=== PATIENT | female | born 1985 | race Caucasian/White ===

== ENCOUNTER 2019-09-06 08:54 | Emergency (ER) | payer SELFPAY ==
[~2019-09-06] VITALS: Ht 165.1 cm; Wt 85.6 kg
[2019-09-06 08:58] VITALS: BP 133/93
[2019-09-06 09:42] LABS: MICROSCOPIC NOT IND
--- NOTE | 2019-09-06 10:04 | NUR ---
Patient/Caregiver given discharge instructions and they have confirmed that they understand the instructions. Patient ambulatory with steady gait.
== END 2019-09-06 10:31 | disposition home or self-care (01) ==
LOC: ED 10:28
DX: M54.5 Low back pain (principal); M54.16 Radiculopathy, lumbar region; R30.0 Dysuria; J45.909 Unspecified asthma, uncomplicated; F17.200 Nicotine dependence, unspecified, uncomplicated
CPT/HCPCS: 81003; 99283

== ENCOUNTER 2019-11-05 20:27 | Emergency (ER) | payer MEDICAID ==
[~2019-11-05] VITALS: Ht 165.1 cm; Wt 91.9 kg
[2019-11-05 20:34] VITALS: BP 129/72
[2019-11-05 21:49] LABS: BASOPHILS # (AUTO) 0.03 x10^3/uL (0-0.1); BASOPHILS % (AUTO) 1 % (0-1); EOSINOPHILS # (AUTO) 0.36 x10^3/uL (0-0.4); EOSINOPHILS % (AUTO) 6 % (1-7); LYMPHOCYTES # (AUTO) 1.41 x10^3/uL (1-3.4); LYMPHOCYTES % (AUTO) 25 % (22-44); MD NO; MEAN CORPUSCULAR HEMOGLOBIN 30.8 pg (27.0-34.8); MEAN CORPUSCULAR HGB CONC 31.4 g/dL (32.4-35.8); MEAN PLATELET VOLUME 6.9 fL (7.4-10.4); MONOCYTES % (AUTO) 11 % (2-9); NEUTROPHILS % (AUTO) 58 % (42-75); PLATELET COUNT 323 x10^3/uL (130-400); RED CELL DISTRIBUTION WIDTH 17.6 % (9.6-15.2)
[2019-11-05] MEDS ORDERED: HYDROcodone/APAP 5/325 TABLET ONE (21:50)
[2019-11-05 21:55] LABS: CLUE CELLS PRESENT (NONE SEEN); WET PREP WBCS FEW (FEW)
[2019-11-05 21:59] LABS: ANION GAP 5 mmol/L (5-15); CALCIUM 8.3 mg/dL (8.5-10.1); CHLORIDE 113 mmol/L (98-107); CREATININE 0.71 mg/dL (0.55-1.02)
[2019-11-05] MEDS ORDERED: HYDROcodone/APAP 5/325 TABLET PO ONE (22:00)
--- NOTE | 2019-11-05 22:42 | NUR ---
PT RETURNED FROM ULTRASOUND AT THIS TIME.
--- NOTE | 2019-11-06 00:21 | NUR ---
PT ON PELVIC BED, ERP AT BEDSIDE FOR IUD REMOVAL. PT DENIES ANY FURTHER NEEDS OR CONCERNS AT THIS TIME.
[2019-11-06] MEDS ORDERED: HYDROmorphone 1 MG/ML, 1ML INJ IM ONE (00:30)
[2019-11-06] MEDS ORDERED: HYDROmorphone 1 MG/ML, 1ML INJ ONE (00:31)
== END 2019-11-06 00:54 | disposition home or self-care (01) ==
LOC: ED 20:59
DX: N73.0 Acute parametritis and pelvic cellulitis (principal); A64 Unspecified sexually transmitted disease; N72 Inflammatory disease of cervix uteri; N93.9 Abnormal uterine and vaginal bleeding, unspecified; N76.0 Acute vaginitis; R10.2 Pelvic and perineal pain; R00.0 Tachycardia, unspecified; J45.909 Unspecified asthma, uncomplicated; F17.210 Nicotine dependence, cigarettes, uncomplicated
CPT/HCPCS: 36415; 76830; 80048; 84703; 85025; 87210; 87491; 87591; 87808; 96372; 99284; J1170

== ENCOUNTER 2019-12-08 11:58 | Emergency (ER) | payer MEDICAID ==
[~2019-12-08] VITALS: Ht 165.1 cm; Wt 91.4 kg
[2019-12-08 12:00] VITALS: BP 155/73
== END 2019-12-08 13:26 | disposition home or self-care (01) ==
LOC: ED 12:25
DX: S60.221A Contusion of right hand, initial encounter (principal); J45.909 Unspecified asthma, uncomplicated; F17.200 Nicotine dependence, unspecified, uncomplicated; Y04.8XXA Assault by other bodily force, initial encounter; Y93.89 Activity, other specified; Y92.410 Unspecified street and highway as the place of occurrence of the external cause; Y99.8 Other external cause status
CPT/HCPCS: 29125; 99283

== ENCOUNTER 2020-11-01 19:39 | Emergency (ER) | payer SELFPAY ==
[~2020-11-01] VITALS: Ht 165.1 cm; Wt 108.1 kg
[2020-11-01 19:48] VITALS: BP 129/81
--- NOTE | 2020-11-01 21:40 | NUR ---
NA X 1
--- NOTE | 2020-11-01 21:57 | NUR ---
NA X 2
--- NOTE | 2020-11-01 22:17 | NUR ---
NA X 3
== END 2020-11-01 22:19 | disposition left against medical advice (07) ==
LOC: ED 21:00
DX: S20.01XA Contusion of right breast, initial encounter (principal); X58.XXXA Exposure to other specified factors, initial encounter; Y93.89 Activity, other specified; Y92.89 Other specified places as the place of occurrence of the external cause; Y99.8 Other external cause status
CPT/HCPCS: 99281

== ENCOUNTER 2020-11-09 02:40 | Emergency (ER) | payer OTHER ==
[~2020-11-09] VITALS: Ht 165.1 cm; Wt 111.3 kg
--- NOTE | 2020-11-09 02:46 | NUR ---
EKG DONE IN TRIAGE.
--- NOTE | 2020-11-09 02:57 | NUR ---
PT PRESENTS TO ER FOR SOB, CHILLS, COUGH, AND SORE THROAT, PT STATES SHE CANT BREATH, PT SPEAKING IN FULL SENTENCES, PT STATES SHE HAS ASTHMA, PT STATES SHE HAS BEEN EXPERIENCING THIS SYMPTOMS SINCE YESTERDAY, PT STATES SHE FEELS LIKE SHE HAS PNEUMONIA, PT HAS A NON PRODUCTIVE COUGH
[2020-11-09 03:26] VITALS: BP 131/88
[2020-11-09] MEDS ORDERED: ALBUTEROL/IPRATROPIUM 2.5MG/0.5MG, 3 ML ONE (03:30)
[2020-11-09] MEDS ORDERED: ALBUTEROL/IPRATROPIUM 2.5MG/0.5MG, 3 ML NPPB ONE (03:30)
[2020-11-09] MEDS ORDERED: ACETAMINOPHEN 500 MG TABLET ONE (03:45)
[2020-11-09] MEDS ORDERED: ACETAMINOPHEN 500 MG TABLET PO ONE (04:00)
[2020-11-09] MEDS ORDERED: DEXAMETHASONE 4 MG TABLET ONE (04:17)
[2020-11-09] MEDS ORDERED: DEXAMETHASONE 4 MG TABLET PO ONE (04:30)
== END 2020-11-09 04:42 | disposition home or self-care (01) ==
LOC: ED 04:26
DX: J45.901 Unspecified asthma with (acute) exacerbation (principal); R06.00 Dyspnea, unspecified; Z20.822 Contact with and (suspected) exposure to COVID-19; R00.0 Tachycardia, unspecified
CPT/HCPCS: 71045; 93005; 94640; 99285; U0003; U0005

== ENCOUNTER 2020-11-29 10:13 | Emergency (ER) | payer OTHER ==
[~2020-11-29] VITALS: Ht 165.1 cm; Wt 108.1 kg
[2020-11-29 11:49] LABS: BASOPHILS % (AUTO) 0 % (0-1); EOSINOPHILS % (AUTO) 1 % (1-7); LYMPHOCYTES % (AUTO) 7 % (22-44); MEAN CORPUSCULAR HEMOGLOBIN 36.4 pg (27.0-34.8); MEAN CORPUSCULAR HGB CONC 33.7 g/dL (32.4-35.8); MEAN PLATELET VOLUME 7.7 fL (7.4-10.4); MONOCYTES % (AUTO) 8 % (2-9); NEUTROPHILS % (AUTO) 84 % (42-75); PLATELET COUNT 219 x10^3/uL (130-400); RED BLOOD COUNT 4.06 x10^6/uL (3.82-5.3); RED CELL DISTRIBUTION WIDTH 15.9 % (9.6-15.2)
[2020-11-29 11:54] LABS: ALBUMIN 3.3 g/dL (3.4-5.0); ANION GAP 10 mmol/L (5-15); CALCIUM 8.8 mg/dL (8.5-10.1); CHLORIDE 106 mmol/L (98-107)
[2020-11-29 11:57] LABS: ALANINE AMINOTRANSFERASE 71 U/L (12-78); ALKALINE PHOSPHATASE 73 U/L (45-117); BILIRUBIN,TOTAL 0.8 mg/dL (0.2-1.0); CREATININE 0.75 mg/dL (0.55-1.02); TOTAL PROTEIN 7.1 g/dL (6.4-8.2)
[2020-11-29 12:13] LABS: <PLATELET ESTIMATE> ADEQUATE; <PLT MORPHOLOGY> NORMAL PLT MORPH; ANISOCYTOSIS 1+
--- NOTE | 2020-11-29 13:53 | NUR ---
PATIENT AMBULATES WITH STEADY GAIT TO ROOM 23, PATIENT STATES SHE CAN GIVE URINE SAMPLE, PATIENT ESCORTED TO BATHROOM.
[2020-11-29] MEDS ORDERED: PANTOPRAZOLE 40 MG IV IVPush SCH (14:30)
[2020-11-29] MEDS ORDERED: SODIUM CHLORIDE FLUSH 10ML SYR IVF ONE (14:30)
[2020-11-29] MEDS ORDERED: SODIUM CHLORIDE 0.9% 1,000ML IVBOLUS ONE ×2 (14:30→16:30)
[2020-11-29] MEDS ORDERED: PANTOPRAZOLE 40 MG IV ONE (14:31)
[2020-11-29] MEDS ORDERED: MORPHINE SULFATE 4 MG/ML, 1ML ONE ×3 (14:31→16:33)
[2020-11-29] MEDS: MORPHINE SULFATE 4 MG/ML, 1ML IVPush PRN ×2 (14:56→16:07)
[2020-11-29 15:15] LABS: MICROSCOPIC INDICATED
--- NOTE | 2020-11-29 15:30 | NUR ---
PATIENT IN CT.
--- NOTE | 2020-11-29 15:39 | NUR ---
PATIENT BACK FROM RADIOLOGY.
[2020-11-29] MEDS ORDERED: ONDANSETRON 2MG/ML, 2ML IVPush ONE (16:30)
[2020-11-29] MEDS ORDERED: MORPHINE SULFATE 4 MG/ML, 1ML IVPush ONE (16:30)
[2020-11-29] MEDS ORDERED: ONDANSETRON 2MG/ML, 2ML ONE (16:38)
[2020-11-29 17:59] VITALS: BP 127/81
== END 2020-11-29 18:03 | disposition home or self-care (01) ==
LOC: ED 14:02
DX: K85.20 Alcohol induced acute pancreatitis without necrosis or infection (principal); J45.909 Unspecified asthma, uncomplicated
CPT/HCPCS: 36415; 74176; 76700; 80053; 81001; 83690; 84703; 85025; 87077; 87086; 96361; 96374; 96375; 96376; 99285; C9113; J2270; J2405; J7030; 87186